=== PATIENT | female | born 1975 | race Caucasian/White ===

== ENCOUNTER 2020-10-14 06:05 | Inpatient (IN) ==
[~2020-10-14 06:05] MED LIST: Buffered Lidocaine 1% SYRIN 1 ml INTRADERM ONE; Lactated Ringers 1000 ml BAG 1,000 ML IV SCH
[2020-10-14] MEDS ORDERED: ceFAZolin 1 GM ADVAN 1 GM ADDV.VIAL IVPB ONE (06:25)
[2020-10-14] MEDS ORDERED: ceFAZolin 2 GM PREMIX 2 GM/50 ML BAG ONE (06:25)
[2020-10-14] MEDS ORDERED: Heparin 5000 UNITS/ML 1 mL VIAL ONE (06:58)
[2020-10-14] MEDS ORDERED: Bupivacaine 0.25% SDV 30 ML ONE ×2 (07:07→08:21)
[2020-10-14] MEDS ORDERED: Methylene Blue 0.5 % 50 MG/10 ML AMP IV ONE (07:07)
[2020-10-14] MEDS ORDERED: fentaNYL 100 mcg/2 ml 50 MCG/ML VIAL ONE ×2 (07:26→08:02)
[2020-10-14] MEDS ORDERED: Midazolam 2 mg/2 ml VIAL 1 mg/ml 2 ml VIAL (2 mg) ONE (07:26)
[2020-10-14] MEDS ORDERED: Lidocaine 2% PF 5 ML VIAL ONE (07:29)
[2020-10-14] MEDS ORDERED: Rocuronium 50 mg VIAL 10 mg/ml 5 ml VIAL (50 mg) ONE ×3 (07:29→10:10)
[2020-10-14] MEDS ORDERED: Propofol 10 MG/ML 20 ML BTL ONE (07:29)
[2020-10-14] MEDS ORDERED: Dexamethasone IV 4 MG/ML VIAL 1 ml VIAL ONE (08:24)
[2020-10-14] MEDS ORDERED: Glycopyrrolate IV 0.2 MG/ML 1 ML VIAL ONE (08:26)
[2020-10-14] MEDS ORDERED: Ondansetron 4 mg VIAL 2 MG/ML 2 ml VIAL ONE ×2 (08:26→11:13)
[2020-10-14] MEDS ORDERED: Neostigmine Methylsulfate 1 MG/ML 10 ML VIAL (1 mg/ml) ONE (08:27)
[2020-10-14] MEDS ORDERED: hydrALAZINE 20 mg/ml 1 ML Vial IV ONE (08:37)
[2020-10-14] MEDS ORDERED: HYDROmorphone 1 MG/1 ML SYRINGE ONE ×2 (09:47→11:27)
[2020-10-14] MEDS ORDERED: Naloxone 0.4 mg VIAL 0.4 mg/ml 1 ml VIAL IV PRN (10:10)
[2020-10-14] MEDS ORDERED: Ondansetron 4 mg VIAL 2 MG/ML 2 ml VIAL IV PRN ×2 (10:10→11:02)
[2020-10-14] MEDS ORDERED: Acetaminophen IV 1 GM/100ML 1,000 MG/100 ML VIAL IVPB ONE (10:10)
[2020-10-14] MEDS ORDERED: Metoprolol Tartrate 5 mg VIAL 5 ml VIAL (1 mg/ml) ONE (10:12)
[2020-10-14] MEDS ORDERED: HYDROcodone/ACET. 7.5/325 LIQ 15 ML UDC PO PRN (11:02)
[2020-10-14] MEDS ORDERED: HYDROmorphone 0.5 MG/0.5 ML SYRINGE IV SLOW PU PRN (11:02)
[2020-10-14] MEDS ORDERED: Acetaminophen IV 1 GM/100ML 100 ML ONE (11:23)
[2020-10-14] MEDS: HYDROmorphone 1 MG/1 ML SYRINGE IV PRN ×2 (11:28→11:38)
[2020-10-14] MEDS ORDERED: DiMENhydriNATE IV 50 mg/ml 1 ml VIAL IV PUSH ONE (11:55)
[2020-10-14] MEDS ORDERED: DiMENhydriNATE IV 50 mg/ml 1 ml VIAL ONE (12:00)
[2020-10-14] MEDS: Lactated Ringers 1000 ml BAG 1,000 ML IV SCH ×2 (12:53→19:43)
[2020-10-14] MEDS ORDERED: Metoclopramide 5 MG/ML VIAL (10 mg) IV PRN (16:50)
[2020-10-14] MEDS: Heparin 5000 UNITS/ML 1 mL VIAL SUBCUT SCH (19:35)
[2020-10-15] MEDS: Lactated Ringers 1000 ml BAG 1,000 ML IV SCH (02:29)
[2020-10-15] MEDS: Heparin 5000 UNITS/ML 1 mL VIAL SUBCUT SCH ×2 (06:23→12:59)
[2020-10-15 11:53] VITALS: BP 155/58
[2020-10-15] MEDS ORDERED: D5W 1/2 NS KCl 20 meq 1000 ml 1,000 ML IV SCH (12:00)
[2020-10-17] MEDS ORDERED: Scopolamine PATCH Remove NOTE PATCH OFF ONE ×2 (12:00→23:00)
== END 2020-10-15 14:30 | disposition home or self-care (01) | DRG 621 ==
LOC: AA 06:05 → SSU 12:49
PROVIDERS: ADMIT Surgery; ATTEND Surgery